=== PATIENT | female | born 1950 | race Caucasian/White ===

== ENCOUNTER 2018-06-28 14:44 | Observation (INO) ==
--- NOTE | 2018-06-28 15:28 | Emergency Department Note ---
Disposition Clinical Impression: Chest pain Qualifiers: Chest pain type: unspecified Qualified Code(s): R07.9 - Chest pain, unspecified Disposition: Admitted As Inpatient Condition: Undetermined Referrals: Evelyn Lemus MD [Primary Care Provider] - Forms: ED Satisfaction Letter Time of Disposition: 16:16 General Adult HPI - General Chief complaint: ED Dizziness Stated complaint: CP Time Seen by Provider: 06/28/18 15:12 Source: patient Mode of arrival: ambulatory Limitations: no limitations Nursing Notes Reviewed: Yes Vital Signs Reviewed: Yes - History of Present Illness HPI Narrative: 68-year-old female with history of [place], arrives to the emergency department with complaint of a diaphoretic and dizzy episode that happened just prior to arrival. The patient states that she was at [employer] and felt very ill. The patient thought that was her blood sugar so she went to lunch. She states the pain and discomfort continued. The patient states that she was having some discomfort in her left shoulder and left chest. He was radiating down her left upper extremity. The patient had some shortness of breath associated with it. She denies any other complaints at this time. She is resting comfortably in the room and denies any active chest pain or dizziness. The patient states that she had a cardiac catheter roughly 1 year ago without any stents placed but she does state that she did have some "blockages". She denies any hemoptysis, unilateral leg swelling, history of DVT or PE, recent immobilizations or surgeries. Pain Scale: 0 - Related Data Home Medications Medication Instructions Recorded Confirmed FLUoxetine HCl [Prozac] 20 mg PO DAILY 09/20/16 11/05/17 Losartan Potassium [Cozaar] 50 mg PO DAILY 09/20/16 11/05/17 Meloxicam [Mobic] 15 mg PO DAILY 09/20/16 11/05/17 Omeprazole [PriLOSEC] 20 mg PO DAILY 09/20/16 11/05/17 Simvastatin [Zocor] 20 mg PO DAILY 09/20/16 11/05/17 Aspirin [Lo-Dose Aspirin EC] 81 mg PO DAILY 11/05/17 11/05/17 Ergocalciferol (VITAMIN D2) 50,000 unit PO QWEEK 11/05/17 11/05/17 [Vitamin D2] Potassium Chloride [K-Tab ER] 20 meq PO DAILY 11/05/17 11/05/17 hydroCHLOROthiazide 25 mg PO DAILY 11/05/17 11/05/17 [Hydrochlorothiazide] Previous Rx's Medication Instructions Recorded Metoprolol [Lopressor] 25 mg PO BID #60 tablet 09/21/16 Allergies Allergy/AdvReac Type Severity Reaction Status Date / Time codeine AdvReac Rash Verified 11/05/17 06:41 IVP dye Allergy Sneezing Uncoded 09/20/16 11:12 All systems ED: reviewed and negative except as stated. Constitutional: Reports: weakness. Denies: fever, chills ENT ED: Denies: dysphagia Cardiovascular: Reports: chest pain. Denies: dyspnea on exertion, edema, syncope Respiratory: Reports: dyspnea. Denies: cough, wheezes, hemoptysis Gastrointestinal: Reports: nausea. Denies: abdominal pain, vomiting, diarrhea, constipation, hematemesis, melena, hematochezia Genitourinary: Denies: urgency, dysuria Musculoskeletal: Reports: arthralgia, myalgia. Denies: back pain, neck pain Integumentary: Denies: rash, lesions Neurological: Denies: headache, numbness, paresthesias, confusion, vertigo Past Medical History - Past Medical History Attestation: Yes The following information was validated with the patient. Source: patient, old records reviewed Medical history: Reports: cancer, GERD, hyperlipidemia, hypertension, renal disease Surgical history: Reports: cholecystectomy, hysterectomy Psychiatric history: Reports: depression - Social History Smoking Status: Never smoker Smokeless Tobacco Status: No Alcohol use: Reports: none Drug use: Reports: none Physical Exam - General Limitations: no limitations General appearance: alert, in no apparent distress - Head Head exam: atraumatic, normocephalic, normal inspection - Eye Eye exam: Present: normal appearance, PERRL, EOMI - ENT ENT exam: normal exam, normal oropharynx, mucous membranes moist - Neck Neck exam: Present: normal inspection, full ROM, trachea midline - Chest Chest inspection: Present: normal inspection, symmetric chest wall rise - Respiratory Respiratory exam: Present: normal lung sounds bilaterally - Cardiovascular Cardiovascular exam: Present: regular rate, normal rhythm, normal heart sounds - Abdominal Exam Abdominal exam: Present: soft, Non-Tender. Absent: tenderness, distention, guarding, rebound, rigidity - Extremities Exam Extremities exam: Present: normal inspection, full ROM. Absent: tenderness, pedal edema - Neurological Exam Neurological exam: Present: alert, oriented X3 - Skin Skin exam: Present: warm, dry, intact, normal color Course Vital Signs Temperature 98.0 F 06/28/18 14:46 Pulse Rate 65 06/28/18 14:46 Respiratory Rate 16 06/28/18 14:46 Blood Pressure 160/84 06/28/18 14:46 O2 Sat by Pulse Oximetry 97 06/28/18 14:46 Temperature 98.0 F 06/28/18 15:57 Pulse Rate 65 06/28/18 15:58 Respiratory Rate 16 06/28/18 15:57 Blood Pressure 139/70 06/28/18 15:58 O2 Sat by Pulse Oximetry 98 06/28/18 15:57 Oxygen Delivery Oxygen Delivery Room Air Medical Decision Making - MDM Narrative Medical decision making narrative: Patient work-up in the ED reveals no acute process. The patient's troponin and EKG demonstrates no acute findings. Chest x-ray demonstrates no acute findings. Given the patient's past history of CAD and diaphoretic episode with a left shoulder pain, the patient will be admitted to the hospital to trend her troponins and a further workup and care. The patient was made aware and agrees to plan. No further questions or concerns are noted at this time. The patient was administered aspirin here in the emergency Department is aware plan. Patient was accepted by Dr. Johns. - Lab Data Lab results reviewed: Yes I reviewed the patient's lab results. Result diagrams: 06/28/18 15:25 06/28/18 15:25 Lab Results 06/28/18 06/28/18 06/28/18 Range/Units 15:25 15:25 15:25 WBC 9.3 (4.3-11.1) K/mcL RBC 4.98 H (3.82-4.97) M/mcL Hgb 14.9 (11.5-15.4) g/dL Hct 42.2 (35.3-44.9) % MCV 84.7 (83.0-100.0) fL MCH 29.9 (28.0-33.3) pg MCHC 35.3 (31.6-35.5) g/dL RDW 12.5 (11.5-14.5) % Plt Count 263 (140-400) K/mcL MPV 10.3 (9.4-12.4) fL Immature Gran % 0.5 (0-4) % Seg Neutrophils % 69.9 % Lymphocytes % 18.0 % Monocytes % 8.1 % Eosinophils % 2.6 % Basophils % 0.9 % Neutrophils # 6.5 (1.6-8.9) K/mcL Lymphocytes # 1.7 (0.6-4.6) K/mcL Monocytes # 0.8 (0.0-1.3) K/mcL Eosinophils # 0.2 (0.0-0.6) K/mcL Basophils # 0.1 (0.0-0.2) K/mcL PT 11.4 (9.4-12.1) Seconds INR 1.0 APTT 34.0 (26.0-36.0) Seconds Sodium 138 (136-145) mEq/L Potassium 3.7 (3.5-5.1) mEq/L Chloride 106 (98-107) mEq/L Carbon Dioxide 24 (23-29) mEq/L BUN 14 (8-23) mg/dL Creatinine 1.13 (0.60-1.20) mg/dL Est GFR ( Amer) 58 L (> 60) Est GFR (Non-Af Amer) 48 L (> 60) BUN/Creatinine Ratio 12 (6-26) Glucose 139 H (70-105) mg/dL Calculated Osmolality 289 (280-300) Calcium 9.4 (8.6-10.3) mg/dL Troponin I < 0.03 (< 0.04) ng/mL - Radiology Data Radiology results reviewed: Yes I reviewed the patient's radiology results. Chest X-Ray 06/28/18 15:14 IMPRESSION: No acute pulmonary finding. D/ / João Hauser MD / João Hauser MD Interpreting Provider: João Hauser MD - EKG Data EKG #1 EKG attestation: Yes I reviewed and interpreted this EKG. EKG results narrative: Heart rate 66 bpm. Normal sinus rhythm. No ST elevation or new ST depression noted. There is subtle ST depression noted in V6 but this is similar in appearance to EKG from 09/20/2016. No other acute changes noted.
[2018-06-28 15:45] LABS: Basophils # 0.1 K/mcL (0.0-0.2); Basophils % 0.9 %; Eosinophils # 0.2 K/mcL (0.0-0.6); Eosinophils % 2.6 %; Hematocrit 42.2 % (35.3-44.9); Hemoglobin 14.9 g/dL (11.5-15.4); Immature Granulocytes % 0.5 % (0-4); Lymphocytes # 1.7 K/mcL (0.6-4.6); Mean Corpuscular HGB Conc 35.3 g/dL (31.6-35.5); Mean Corpuscular Hemoglobin 29.9 pg (28.0-33.3); Mean Corpuscular Volume 84.7 fL (83.0-100.0); Mean Platelet Volume 10.3 fL (9.4-12.4); Monocytes # 0.8 K/mcL (0.0-1.3); Monocytes % 8.1 %; Neutrophils # 6.5 K/mcL (1.6-8.9); Platelet Count 263 K/mcL (140-400); Red Blood Count 4.98 M/mcL (3.82-4.97); Red Cell Distribution Width 12.5 % (11.5-14.5); Segmented Neutrophils % 69.9 %
[2018-06-28 15:53] LABS: Prothrombin Time 11.4 Seconds (9.4-12.1)
[2018-06-28 16:07] LABS: BUN/Creatinine Ratio 12 (6-26); Blood Urea Nitrogen 14 mg/dL (8-23); Calcium 9.4 mg/dL (8.6-10.3); Carbon Dioxide 24 mEq/L (23-29); Chloride 106 mEq/L (98-107); Glucose 139 mg/dL (70-105); Osmolality,Calculated 289 (280-300); Potassium 3.7 mEq/L (3.5-5.1); Sodium 138 mEq/L (136-145); Troponin I < 0.03 ng/mL (< 0.04); eGFR For Non-African Americans 48 (> 60)
[2018-06-28] MEDS ORDERED: Aspirin 325 MG TABLET PO ONE (16:14)
--- NOTE | 2018-06-28 17:30 | Emergency Department Note ---
Disposition Clinical Impression: Chest pain Qualifiers: Chest pain type: unspecified Qualified Code(s): R07.9 - Chest pain, unspecified Disposition: Admitted As Inpatient Condition: Fair Referrals: Evelyn Lemus MD [Primary Care Provider] - Dizziness HPI - General Chief Complaint: ED Dizziness Stated Complaint: CP Time Seen by Provider: 06/28/18 15:12 Source: patient Mode of arrival: ambulatory Limitations: no limitations Nursing Notes Reviewed: Yes Vital Signs Reviewed: Yes - Related Data Home Medications Medication Instructions Recorded Confirmed FLUoxetine HCl [Prozac] 20 mg PO DAILY 09/20/16 06/28/18 Losartan Potassium [Cozaar] 50 mg PO DAILY 09/20/16 06/28/18 Meloxicam [Mobic] 15 mg PO DAILY 09/20/16 06/28/18 Omeprazole [PriLOSEC] 20 mg PO DAILY 09/20/16 06/28/18 Simvastatin [Zocor] 20 mg PO DAILY 09/20/16 06/28/18 Aspirin [Lo-Dose Aspirin EC] 81 mg PO DAILY 11/05/17 06/28/18 Ergocalciferol (VITAMIN D2) 50,000 unit PO QWEEK 11/05/17 06/28/18 [Vitamin D2] Potassium Chloride [K-Tab ER] 20 meq PO DAILY 11/05/17 06/28/18 hydroCHLOROthiazide 25 mg PO DAILY 11/05/17 06/28/18 [Hydrochlorothiazide] Metoprolol [Lopressor] 50 mg PO BID 06/28/18 06/28/18 Mupirocin [Bactroban Oint] 1 appl TP TID 06/28/18 06/28/18 Sulfamethoxazole/Trimeth DS 1 tab PO BID 06/28/18 06/28/18 [Bactrim DS] Allergies Allergy/AdvReac Type Severity Reaction Status Date / Time codeine AdvReac Rash Verified 11/05/17 06:41 IVP dye Allergy Sneezing Uncoded 09/20/16 11:12 Constitutional: Reports: weakness. Denies: fever, chills ENT ED: Denies: dysphagia Cardiovascular: Reports: chest pain. Denies: dyspnea on exertion, edema, syncope Respiratory: Reports: dyspnea. Denies: cough, wheezes, hemoptysis Gastrointestinal: Reports: nausea. Denies: abdominal pain, vomiting, diarrhea, constipation, hematemesis, melena, hematochezia Genitourinary: Denies: urgency, dysuria Musculoskeletal: Reports: arthralgia, myalgia. Denies: back pain, neck pain Integumentary: Denies: rash, lesions Neurological: Denies: headache, numbness, paresthesias, confusion, vertigo Past Medical History - Past Medical History Medical history: Reports: cancer, GERD, hyperlipidemia, hypertension, renal disease Surgical history: Reports: cholecystectomy, hysterectomy Psychiatric history: Reports: depression - Social History Smoking Status: Never smoker Smokeless Tobacco Status: No Alcohol use: Reports: none Drug use: Reports: none Physical Exam - General Limitations: no limitations General appearance: alert, in no apparent distress Course Vital Signs Temperature 98.0 F 06/28/18 14:46 Pulse Rate 65 06/28/18 14:46 Respiratory Rate 16 06/28/18 14:46 Blood Pressure 160/84 06/28/18 14:46 O2 Sat by Pulse Oximetry 97 06/28/18 14:46 Temperature 98.0 F 06/28/18 15:57 Pulse Rate 65 06/28/18 15:58 Respiratory Rate 16 06/28/18 15:57 Blood Pressure 139/70 06/28/18 15:58 O2 Sat by Pulse Oximetry 98 06/28/18 15:57 Oxygen Delivery Oxygen Delivery Room Air Dizziness - Lab Data Result diagrams: 06/28/18 15:25 06/28/18 15:25 Lab Results 06/28/18 06/28/18 06/28/18 Range/Units 15:25 15:25 15:25 WBC 9.3 (4.3-11.1) K/mcL RBC 4.98 H (3.82-4.97) M/mcL Hgb 14.9 (11.5-15.4) g/dL Hct 42.2 (35.3-44.9) % MCV 84.7 (83.0-100.0) fL MCH 29.9 (28.0-33.3) pg MCHC 35.3 (31.6-35.5) g/dL RDW 12.5 (11.5-14.5) % Plt Count 263 (140-400) K/mcL MPV 10.3 (9.4-12.4) fL Immature Gran % 0.5 (0-4) % Seg Neutrophils % 69.9 % Lymphocytes % 18.0 % Monocytes % 8.1 % Eosinophils % 2.6 % Basophils % 0.9 % Neutrophils # 6.5 (1.6-8.9) K/mcL Lymphocytes # 1.7 (0.6-4.6) K/mcL Monocytes # 0.8 (0.0-1.3) K/mcL Eosinophils # 0.2 (0.0-0.6) K/mcL Basophils # 0.1 (0.0-0.2) K/mcL PT 11.4 (9.4-12.1) Seconds INR 1.0 APTT 34.0 (26.0-36.0) Seconds Sodium 138 (136-145) mEq/L Potassium 3.7 (3.5-5.1) mEq/L Chloride 106 (98-107) mEq/L Carbon Dioxide 24 (23-29) mEq/L BUN 14 (8-23) mg/dL Creatinine 1.13 (0.60-1.20) mg/dL Est GFR ( Amer) 58 L (> 60) Est GFR (Non-Af Amer) 48 L (> 60) BUN/Creatinine Ratio 12 (6-26) Glucose 139 H (70-105) mg/dL Calculated Osmolality 289 (280-300) Calcium 9.4 (8.6-10.3) mg/dL Troponin I < 0.03 (< 0.04) ng/mL Attestation Statement - Attestation Attestation: I, Edu Ricks, examined this patient and my medical decision-making was reviewed with the PROOF CLERK/PA/Advanced Practice Nurse/Resident Physician. I agree with the documented findings, disposition and treatment plan as described except to the extent set forth below. 68-year-old female presents emergency Department with concerns of acute onset chest pain. Patient states she was in the low was walking when she had acute onset of dyspnea, diaphoresis, chest pain which is described as a pressure in the left upper chest that radiated to the left upper extremity. Patient has a history of coronary artery disease however she said that the stenosis did not require stenting 6 months ago. Patient heart catheterization was performed by Dr. Alonso per the patient. Patient denies near syncope or palpitations during this event. During physical evaluation patient has lungs are clear to auscultation bilaterally. I am unable to repeat reproduce the chest pain on exam. EKG did not show evidence of STEMI. Chest x-ray did not show evidence of infiltrate. 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 They were concerned about possible metastasis of this cancer. She denied unexplained weight loss or night sweats. I did agree the patient would likely require further workup for extent of cancer which can be performed either as inpatient or outpatient within the very near future. Patient felt comfortable with this plan of action. She was admitted to the hospitalist for further care and evaluation.
[2018-06-28] MEDS ORDERED: Naloxone 0.4 MG/ML INJ IVP PRN (22:53)
--- NOTE | 2018-06-29 06:59 | Internal Med History&Physical ---
Date of Encounter: 06/28/18 Time of Encounter: 23:00 Internal Medicine - H&P: HPI Chief complaint: Chest pain Admitted From: Home Plans for Post Hospital Care: Home History of present illness: Ms. Pack is a 68 year old female. The patient experienced central anterior chest pain with radiation to her anterior neck, when she was shopping. It lasted for a few minutes. It was associated with some diaphoresis. She was pain free when arriving to the emergency department. Interestingly, she has had a few episodes of similar pain for about 1 year. She had cardiac catheterization done about 6 months ago. He did not show any significant blockages. She had Cardiolite stress test done in November of this yearshowed normal findings. The patient mows grass by herself using a push mower. She does not have any exertional chest pain when doing those activities. EKG and troponins are normal. Cardiac telemetry is normal, too. Review of systems: All 14 organ systems were reviewed by me with the patient. Positive and pertinent negative findings are listed above. The rest of organ systems is negative. Physical Exam: Skin: Free of rash and discoloration. Eyes: Sclera is white. There is no discharge from eyes. ENMT: Oral/pharyngeal mucosa is normal in appearance. There is no discharge from nose or ears. Respiratory: Normal breath sounds with no crackles and wheezes bilaterally. CV: Heart is regular with no gallop or murmur. GI: Abdomen is flat and soft with no palpable mass or visceromegaly. : There is no tenderness in patient's flanks bilaterally. Neuro exam: There is good strength in upper and lower extremities. The patient has normal eye movements. Psychiatric: The patient has normal affect. His thought process is appropriate to the situation. A/P: Chest pain, likely noncardiac. We will keep her overnight in the telemetry floor. Her further management will be by outpatient cardiology. GERD. She is on omeprazole. This may be likely cause of her chest pain. Hypertension. Under control. We will continue Lopressor, losartan and HCTZ. Hyperlipidemia. She is on Zocor. Disposition: Likely discharge tomorrow. Past Med Surg Social Fam HX - Past Medical History Medical history: cancer, GERD, hyperlipidemia, hypertension, renal disease Additional medical history: squamous cell carcinoma Psychiatric history: depression - Past Surgical History Surgical History: cholecystectomy, hysterectomy Additional surgical history: right knee scope, heart cath 2000, rectocele - Social History Smoking Status: Never smoker Smokeless Tobacco Status: No Alcohol use: none Drug use: none - Family History Father Living Status: Age at : 61 Hx Family Cardiac Disorders: Yes Mother Living Status: Age at : 83 Cause of : cervical cancer Hx Family Cardiac Disorders: Yes (Hypertension) Hx Family Cancer: Yes (Cervical cancer) Internal Medicine - H&P: Meds FLUoxetine HCl [Prozac] 20 mg PO DAILY 09/20/16 [History] Losartan Potassium [Cozaar] 50 mg PO DAILY 09/20/16 [History] Meloxicam [Mobic] 15 mg PO DAILY 09/20/16 [History] Omeprazole [PriLOSEC] 20 mg PO DAILY 09/20/16 [History] Simvastatin [Zocor] 20 mg PO DAILY 09/20/16 [History] Aspirin [Lo-Dose Aspirin EC] 81 mg PO DAILY 11/05/17 [History] Ergocalciferol (VITAMIN D2) [Vitamin D2] 50,000 unit PO QWEEK 11/05/17 [History] Potassium Chloride [K-Tab ER] 20 meq PO DAILY 11/05/17 [History] hydroCHLOROthiazide [Hydrochlorothiazide] 25 mg PO DAILY 11/05/17 [History] Metoprolol [Lopressor] 50 mg PO BID 06/28/18 [History] Mupirocin [Bactroban Oint] 1 appl TP TID 06/28/18 [History] Sulfamethoxazole/Trimeth DS [Bactrim DS] 1 tab PO BID 06/28/18 [History] 3 Allergy/AdvReac Type Severity Reaction Status Date / Time codeine AdvReac Rash Verified 11/05/17 06:41 IVP dye Allergy Sneezing Uncoded 09/20/16 11:12 - Constitutional Vitals: Temp Pulse Resp BP Pulse Ox 97.8 F 66 16 134/72 96 06/29/18 04:10 06/29/18 04:10 06/29/18 04:10 06/29/18 04:10 06/29/18 04:10 General appearance: Present: no acute distress, answers questions appropriately Internal Med - H&P Results - Labs CBC & Chem 7: 06/28/18 15:25 06/28/18 15:25 Labs: Cardiac Enzymes 08/03/18 Range/Units 23:19 Troponin I < 0.03 (< 0.04) ng/mL - Assessment and plan (1) Chest pain Current Visit: Yes Status: Acute Qualifiers: Chest pain type: unspecified Qualified Code(s): R07.9 - Chest pain, unspecified (2) GERD (gastroesophageal reflux disease) Current Visit: Yes Status: Acute Qualifiers: Esophagitis presence: esophagitis presence not specified Qualified Code(s) : K21.9 - Gastro-esophageal reflux disease without esophagitis (3) HTN (hypertension) Current Visit: Yes Status: Acute Qualifiers: Hypertension type: essential hypertension Qualified Code(s): I10 - Essential (primary) hypertension (4) HLD (hyperlipidemia) Current Visit: Yes Status: Acute Qualifiers: Hyperlipidemia type: unspecified Qualified Code(s): E78.5 - Hyperlipidemia , unspecified - Time Spent With Patient Total time spent is greater than 50% in coordination of care (as documented) at patient's floor/unit and/or counseling patient: Greater than 35 minutes (40 minutes)
[2018-06-29] MEDS ORDERED: FLUoxetine 20 MG CAPSULE PO SCH (09:00)
[2018-06-29] MEDS ORDERED: Sulfamethoxazole/Trimeth DS 1 EACH TABLET PO SCH (09:00)
[2018-06-29] MEDS ORDERED: hydroCHLOROthiazide 25 MG TABLET PO SCH (09:00)
[2018-06-29] MEDS ORDERED: Aspirin Enteric Coated 81 MG Tablet PO SCH (09:00)
[2018-06-29 12:08] VITALS: BP 113/68
--- NOTE | 2018-06-29 14:22 | Discharge Summary ---
- NOTES TO OUTPATIENT PROVIDER Notes to Outpatient Provider: 1. Yennifer f/u with cardiology for further recommendation. Date of Encounter: 06/29/18 Time of Encounter: 13:00 - Discharge Diagnosis (1) Chest pain Priority: Primary Status: Acute Qualifiers: Chest pain type: unspecified Qualified Code(s): R07.9 - Chest pain, unspecified (2) GERD (gastroesophageal reflux disease) Priority: Secondary Status: Acute Qualifiers: Esophagitis presence: esophagitis presence not specified Qualified Code(s) : K21.9 - Gastro-esophageal reflux disease without esophagitis (3) HTN (hypertension) Priority: Secondary Status: Acute Qualifiers: Hypertension type: essential hypertension Qualified Code(s): I10 - Essential (primary) hypertension (4) HLD (hyperlipidemia) Priority: Secondary Status: Acute Qualifiers: Hyperlipidemia type: unspecified Qualified Code(s): E78.5 - Hyperlipidemia , unspecified Hospital course: Ms. Pack is a 68 year old female was admitted for chest pain with diaphoresis and dizziness. Patient had LHC done about 9 months ago which shows minimal (25%) stenosis on 3 vessels. Patient also had stress test about 7 months ago, which is negative. Patient was placed on continuous cardiac monitoring. 3 sets of troponin was checked. Patient has no further chest pain after hospitalization. 3 sets of troponin negative. EKG and a chest x-ray and remarkable. Patient is stable to discharge home and continue follow-up with her cardiology. She is on aspirin, beta ismael, and statin, we will continue current medications. I saw and examined the patient today. She is awake alert, oriented 3. Feel comfortable, no further chest pain, chest pressure, dizziness, shortness of breath, or nausea. Vitals are stable. Patient said she will follow up with her cardiology and discuss if she needed another stress test. Currently ACS is ruled out and the patient is stable to discharge home. - Time Spent with Patient Total time spent providing and/or coordinating discharge services: 28 minutes Less than 30 minutes - Discharge Medications Home Medications: FLUoxetine HCl [Prozac] 20 mg PO DAILY 09/20/16 [History] Losartan Potassium [Cozaar] 50 mg PO DAILY 09/20/16 [History] Meloxicam [Mobic] 15 mg PO DAILY 09/20/16 [History] Omeprazole [PriLOSEC] 20 mg PO DAILY 09/20/16 [History] Simvastatin [Zocor] 20 mg PO DAILY 09/20/16 [History] Aspirin [Lo-Dose Aspirin EC] 81 mg PO DAILY 11/05/17 [History] Ergocalciferol (VITAMIN D2) [Vitamin D2] 50,000 unit PO QWEEK 11/05/17 [History] Potassium Chloride [K-Tab ER] 20 meq PO DAILY 11/05/17 [History] hydroCHLOROthiazide [Hydrochlorothiazide] 25 mg PO DAILY 11/05/17 [History] Metoprolol [Lopressor] 50 mg PO BID 06/28/18 [History] Mupirocin [Bactroban Oint] 1 appl TP TID 06/28/18 [History] Sulfamethoxazole/Trimeth DS [Bactrim DS] 1 tab PO BID 06/28/18 [History] Allergies/Adverse Reactions: 3 Allergy/AdvReac Type Severity Reaction Status Date / Time codeine AdvReac Rash Verified 11/05/17 06:41 IVP dye Allergy Sneezing Uncoded 09/20/16 11:12 Date of admission: 06/28/18 16:21 Primary care physician: Evelyn Lemus MD Discharging clinician: Norbert Del Valle Anticipated date of discharge: 06/29/18 - Constitutional Vitals: Temp Pulse Resp BP Pulse Ox 98 F 65 17 113/68 96 06/29/18 12:07 06/29/18 12:07 06/29/18 12:07 06/29/18 12:07 06/29/18 12:07 General appearance: Present: A&O X 3, no acute distress, answers questions appropriately - Head Head exam: Present: atraumatic, normocephalic - Eye Eye exam: Present: PERRL, conjuntiva pink, sclera anicteric Pupils: Present: PERRL - Neck Neck exam general surgery: Present: supple, trachea midline. Absent: lymphadenopathy - Respiratory Respiratory exam: Present: CTAB. Absent: accessory muscle use, rales, rhonchi, wheezes - Cardiovascular Cardiovascular exam: Present: RRR, +S1, +S2. Absent: diastolic murmur, gallop, rubs, systolic murmur - GI/Abdominal GI/Abdominal exam: Present: normal bowel sounds, soft, no peritoneal signs. Absent: distended, tenderness - Extremities Exam Extremities exam: Present: warm, radial pulses palpable and symmetrical. Absent : calf tenderness, cyanotic, pedal edema - Neurological Exam Neurological exam: Present: CN II-XII intact, oriented X3, no focal deficits. Absent: pronater drift, facial droop, speech deficit - Skin Skin exam: Present: dry, intact - Patient Status Disposition: Home, Self-Care Condition: Good Functional capacity at discharge: independent ambulation Overall status at discharge: patient is back to baseline - Discharge Instructions Follow Up With: Evelyn Lemus MD [Primary Care Provider] - Forms: ED Satisfaction Letter - Diet and Activity Activity: increase activity as tolerated Diet: advance to your usual diet
--- NOTE | 2018-07-01 08:58 | Electrocardiograph Report ---
[place] [id number] Test Date: 2018-06-28 Pat Name: Jaz Pack Department: [id number] Room: 3B65 Gender: Painting Supervisor: DOV : 1950 Requested By: Edu Ricks Order Number: [id number] Reading MD: Elie Loyola Measurements Intervals [place] Rate: 66 P: 40 LA: 138 QRS: 8 QRSD: 89 T: 69 QT: 408 QTc: 422 Interpretive Statements SINUS RHYTHM NONSPECIFIC ST & T-WAVE ABNORMALITY INTERPRETATION BASED ON A DEFAULT AGE OF 40 YEARS Electronically Signed On 07-01-2018 8:56:35 EDT by Elie Loyola
== END 2018-06-29 15:12 | disposition home or self-care (01) ==
LOC: 3BNU 14:44 → EMEROO 14:44 → 3BNU 17:10
PROVIDERS: ADMIT Internal Medicine; ATTEND Internal Medicine

== ENCOUNTER 2022-02-15 15:21 | Observation (INO) ==
[2022-02-15] MEDS ORDERED: Isovue-370 500 ML BOTTLE IVP ONE (16:24)
[2022-02-15 16:54] LABS: Basophils # 0.1 K/mcL (0.0-0.2); Basophils % 1.3 %; Eosinophils # 0.3 K/mcL (0.0-0.6); Eosinophils % 3.7 %; Hemoglobin 13.5 g/dL (11.5-15.4); Immature Granulocytes % 0.3 % (0-4); Lymphocytes # 1.9 K/mcL (0.6-4.6); Lymphocytes % 27.2 %; Mean Corpuscular HGB Conc 35.5 g/dL (31.6-35.5); Mean Corpuscular Hemoglobin 30.3 pg (28.0-33.3); Mean Corpuscular Volume 85.2 fL (83.0-100.0); Mean Platelet Volume 10.1 fL (9.4-12.4); Monocytes # 0.7 K/mcL (0.0-1.3); Monocytes % 10.3 %; Platelet Count 253 K/mcL (140-400); Red Blood Count 4.46 M/mcL (3.82-4.97); Red Cell Distribution Width 12.1 % (11.5-14.5); Segmented Neutrophils % 57.2 %
[2022-02-15 17:44] LABS: BUN/Creatinine Ratio 11 (6-26); Blood Urea Nitrogen 11 mg/dL (8-23); Calcium 8.9 mg/dL (8.6-10.3); Carbon Dioxide 26 mEq/L (23-29); Chloride 106 mEq/L (98-107); Glucose 98 mg/dL (70-105); Osmolality,Calculated 291 (280-300); Potassium 3.7 mEq/L (3.5-5.1); Sodium 141 mEq/L (136-145); Troponin I < 0.03 ng/mL (< 0.04); eGFR For African Americans > 60 (> 60); eGFR For Non-African Americans 54 (> 60)
[2022-02-15] MEDS ORDERED: Nitroglycerin 0.4 MG TAB.SUBL SL PRN (23:12)
[2022-02-15] MEDS ORDERED: Morphine Sulfate 2 MG/ML SYRINGE IVP PRN (23:19)
[2022-02-15] MEDS ORDERED: Perflutren Lipid Microsphere 1.3 ML in 0.9 % Sodium Chloride 8.7 ML IVP PRN (23:21)
[2022-02-15] MEDS ORDERED: Famotidine 20 MG/2 ML VIAL IVP SCH (23:22)
[2022-02-16] MEDS: Aspirin Enteric Coated 81 MG Tablet PO SCH ×2 (00:30→09:00)
[2022-02-16] MEDS ORDERED: Naloxone 0.4 MG/ML INJ IVP PRN (00:47)
[2022-02-16] MEDS ORDERED: Acetaminophen 325 MG TABLET PO PRN (00:47)
[2022-02-16] MEDS ORDERED: Ondansetron 4 MG/2 ML VIAL IVP PRN (00:47)
[2022-02-16 02:58] LABS: Hematocrit 35.8 % (35.3-44.9); Hemoglobin 12.6 g/dL (11.5-15.4); Mean Corpuscular HGB Conc 35.2 g/dL (31.6-35.5); Mean Corpuscular Hemoglobin 29.8 pg (28.0-33.3); Mean Corpuscular Volume 84.6 fL (83.0-100.0); Mean Platelet Volume 10.5 fL (9.4-12.4); Platelet Count 209 K/mcL (140-400); Red Blood Count 4.23 M/mcL (3.82-4.97); Red Cell Distribution Width 12.3 % (11.5-14.5); White Blood Count 6.8 K/mcL (4.3-11.1)
[2022-02-16 03:09] LABS: INR 1.1; Prothrombin Time 12.2 Seconds (9.4-12.1)
[2022-02-16 03:18] LABS: BUN/Creatinine Ratio 12 (6-26); Blood Urea Nitrogen 12 mg/dL (8-23); Calcium 8.5 mg/dL (8.6-10.3); Carbon Dioxide 26 mEq/L (23-29); Chloride 107 mEq/L (98-107); Chol/HDL Ratio 6.6 (0-4.9); Cholesterol 206 mg/dL (< 200); Glucose 160 mg/dL (70-105); HDL Cholesterol 31 mg/dL (40-59); LDL Cholesterol,Calculated 121 mg/dL (< 100); Magnesium 1.6 mg/dL (1.6-2.6); Osmolality,Calculated 293 (280-300); Potassium 3.1 mEq/L (3.5-5.1); Sodium 140 mEq/L (136-145); Triglycerides 269 mg/dL (< 150); eGFR For African Americans > 60 (> 60); eGFR For Non-African Americans 54 (> 60)
[2022-02-16 03:55] LABS: Estimated Average Glucose 143 mg/dl; Hemoglobin A1C 6.6 %
[2022-02-16] MEDS ORDERED: Regadenoson 0.4 MG/5 ML SYRINGE IVP ONE ×3 (06:03→11:30)
[2022-02-16] MEDS: *HR* Heparin 5,000 UNIT/ML VIAL SQ SCH ×2 (06:26→15:41)
[2022-02-16 07:54] VITALS: BP 143/73; PULSE 60; TEMP 98.2
[2022-02-16 07:58] VITALS: O2SAT 95
[2022-02-17] MEDS ORDERED: Famotidine 20 MG/2 ML VIAL IVP SCH (09:00)
[2022-02-17] MEDS ORDERED: FLUoxetine 20 MG CAPSULE PO SCH (09:00)
== END 2022-02-16 15:45 | disposition home or self-care (01) ==
LOC: EMEROOARM 15:21 → 2NENU 15:21 → SUATTDRO 20:08 → 2NENU 20:49
PROVIDERS: ADMIT Student in an Organized Health Care Education/Training Program; ATTEND Internal Medicine